=== PATIENT | female | born 1970 | race Caucasian/White ===

== ENCOUNTER 2018-06-22 12:36 | Day surgery (SDC) | payer MEDICAID ==
[~2018-06-22] VITALS: Ht 170.2 cm; Wt 86.4 kg
[2018-06-22] MEDS ORDERED: fentaNYL/PF 50MCG/1 ML 2ML syringe ONE (13:07)
[2018-06-22] MEDS ORDERED: MIDAZolam 5mg/5ml vial ONE (13:08)
[2018-06-22] MEDS ORDERED: LIDOcaine Viscous 15ml cup ONE (13:08)
[2018-06-22 13:13] VITALS: BP 152/100
[2018-06-22 14:42] VITALS: BP 124/103
[2018-06-22 14:52] VITALS: BP 124/75
[2018-06-22 15:02] VITALS: BP 127/82
[2018-06-22 15:12] VITALS: BP 131/85
== END 2018-06-22 15:22 | disposition home or self-care (01) ==
LOC: GI LAB 12:36
PROVIDERS: ATTEND Internal Medicine Gastroenterology
DX: K57.30 Diverticulosis of large intestine without perforation or abscess without bleeding (principal); K29.50 Unspecified chronic gastritis without bleeding; K64.8 Other hemorrhoids; K31.7 Polyp of stomach and duodenum; Q43.8 Other specified congenital malformations of intestine; K22.8 Other specified diseases of esophagus; K59.00 Constipation, unspecified; K21.0 Gastro-esophageal reflux disease with esophagitis; Z98.890 Other specified postprocedural states
CPT/HCPCS: 43239; 43251; 45378; 99152; 99153; J2250; J3010; J7030; A4620

== ENCOUNTER → 2018-06-24 | Emergency (ER) | payer MEDICAID ==
[~2018-06-24] VITALS: Ht 170.2 cm; Wt 88.4 kg
[2018-06-24 12:05] LABS: BASOPHILS % (AUTO) 0.2 % (0-1); EOSINOPHILS # (AUTO) 0.2 X10'3 (0-0.9); EOSINOPHILS % (AUTO) 1.9 % (0-6); HEMOGLOBIN 12.8 g/dl (12.0-16.0); LYMPHOCYTES # (AUTO) 1.3 X10'3 (1.1-4.8); LYMPHOCYTES % (AUTO) 14.3 % (21-51); MEAN CORPUSCULAR HEMOGLOBIN 29.1 PG (27.0-31.0); MEAN CORPUSCULAR HGB CONC 33.6 % (33.0-36.5); MEAN CORPUSCULAR VOLUME 86.8 FL (78-98); MEAN PLATELET VOLUME 8.3 FL (7.4-10.4); MONOCYTES # (AUTO) 0.6 X10'3 (0-0.9); MONOCYTES % (AUTO) 6.6 % (2-12); NEUTROPHILS # (AUTO) 7.1 X10'3 (1.8-7.7); PLATELET COUNT 299 X10'3 (140-440); RED BLOOD COUNT 4.38 X10'6 (4.20-5.60); RED CELL DISTRIBUTION WIDTH 13.7 % (11.5-14.5); WHITE BLOOD COUNT 9.2 X10'3 (4.5-11.0)
[2018-06-24 12:06] LABS: URINE HCG NEGATIVE (NEG)
[2018-06-24 12:08] LABS: ALANINE AMINOTRANSFERASE 14 U/L (12-78); ALBUMIN 3.9 G/DL (3.4-5.0); ALBUMIN/GLOBULIN RATIO 1.1 (1.1-1.5); ALKALINE PHOSPHATASE 62 IU/L (46-116); ANION GAP 8 (8-16); ASPARTATE AMINO TRANSFERASE 11 U/L (10-37); BILIRUBIN,TOTAL 0.3 MG/DL (0.1-1.0); BLOOD UREA NITROGEN 11 MG/DL (7-18); BUN/CREATININE RATIO 17.2 (6.6-38.0); CALCIUM 9.4 MG/DL (8.5-10.1); CHLORIDE 103 MMOL/L (99-107); CREATININE 0.64 MG/DL (0.40-0.90); GLUCOSE 97 MG/DL (70-104); LIPASE 121 U/L (73-393); POTASSIUM 3.9 MMOL/L (3.5-5.1); SODIUM 139 MMOL/L (135-145); TOTAL CARBON DIOXIDE 28.4 MMOL/L (24-32); TOTAL PROTEIN 7.3 G/DL (6.4-8.2); eGFR > 90 ML/MIN
[2018-06-24 12:11] LABS: CLARITY,URINE CLEAR (Clear); COLOR,URINE YELLOW (Yellow); GLUCOSE, URINE NEGATIVE (Neg); KETONES,URINE TRACE mg/dl (Neg); LEUKOCYTE ESTERASE ,URINE NEGATIVE (Neg); NITRITES, URINE NEGATIVE (Neg); OCCULT BLOOD,URINE TRACE-INTACT (Neg); PH,URINE 5.5 (4.8-8.0); PROTEIN,URINE NEGATIVE (Neg); UROBILINOGEN,URINE 0.2 E.U/dL (0.2-1.0)
[2018-06-24 12:21] LABS: UA COLLECTION TYPE CLN CATCH MIDSTREAM
[2018-06-24 12:28] LABS: RBC,URINE 0-2 /HPF (0-2); WBC,URINE NONE SEEN /HPF (0-4)
[2018-06-24 12:29] LABS: BACTERIA,URINE NONE SEEN /HPF (Neg); SQUAMOUS EPITHELIAL CELL,UR FEW /LPF (FEW)
[2018-06-24 12:52] VITALS: BP 122/106
== END | disposition home or self-care (01) ==
LOC: ER 10:50
DX: R42 Dizziness and giddiness (principal); K92.1 Melena
CPT/HCPCS: 36415; 80053; 81001; 81025; 83690; 85025; 99284